=== PATIENT | female | born 1970 | race Caucasian/White ===

== ENCOUNTER → 2016-09-16 | Outpatient (CLI) | payer OTHER | LOC: MAMO 10:05 | DX: Z12.31 Encounter for screening mammogram for malignant neoplasm of breast (principal); N63 Unspecified lump in breast | CPT/HCPCS: G0202 ==

== ENCOUNTER → 2016-10-01 | Outpatient (CLI) | payer OTHER | LOC: MAMO 14:18 | DX: R92.8 Other abnormal and inconclusive findings on diagnostic imaging of breast (principal) | CPT/HCPCS: 76641-LT; G0206 ==

== ENCOUNTER → 2016-12-25 | Outpatient (CLI) | payer OTHER | LOC: KOH-I 08:59 | DX: R05 Cough (principal) | CPT/HCPCS: 71020 ==

== ENCOUNTER → 2020-05-06 | Outpatient (CLI) | payer OTHER ==
[~2020-05-06] MED LIST: ATORVASTATIN CA10 MG PO; CHLORTHALIDONE25 MG PO; ESCITALOPRAM OX20 MG PO; IBUPROFEN PO; K-DUR TAB 20 M20 MEQ PO; PROTONIX 40 MG40 M1 PO; VIT D PO
== END ==
LOC: KOH-I 13:40
DX: M54.5 Low back pain (principal); W19.XXXA Unspecified fall, initial encounter
CPT/HCPCS: 72110

== ENCOUNTER → 2020-05-07 | Outpatient (CLI) | payer OTHER ==
[2020-05-07 11:50] LABS: HEMOGLOBIN 14.5 gm/dl (12.3-15.3); RED BLOOD COUNT 4.58 M/UL (4.00-5.10); WHITE BLOOD COUNT 6.5 K/UL (4.5-11.0)
[2020-05-07 12:18] LABS: BUN/CREATININE RATIO 17 (0-10)
== END ==
LOC: LAB 11:30
PROVIDERS: Nurse Practitioner Family
DX: Z13.220 Encounter for screening for lipoid disorders (principal); R53.83 Other fatigue
CPT/HCPCS: 36415; 80053; 80061; 82607; 83036; 85025

== ENCOUNTER 2020-08-25 14:21 | Emergency (ER) | payer OTHER ==
[~2020-08-25 14:21] MED LIST changes: -K-DUR TAB 20 M20 MEQ PO
[2020-08-25 15:02] LABS: HEMOGLOBIN 13.9 gm/dl (12.3-15.3); RED BLOOD COUNT 4.43 M/UL (4.00-5.10); WHITE BLOOD COUNT 8.7 K/UL (4.5-11.0)
[2020-08-25 15:41] LABS: BUN/CREATININE RATIO 18 (0-10)
[2020-08-25] MEDS ORDERED: K-DUR TAB 20 M20 MEQ PO (18:43)
== END 2020-08-25 19:16 | disposition home or self-care (01) ==
LOC: ER1 14:21
PROVIDERS: Physician Assistant
DX: R07.89 Other chest pain (principal); E78.5 Hyperlipidemia, unspecified; I10 Essential (primary) hypertension; E87.6 Hypokalemia
CPT/HCPCS: 71045; 80053; 81001; 82550; 82553; 83874; 84484; 84703; 85025; 87086; 93005; 99285